=== PATIENT | male | born 1980 | race Caucasian/White ===

== ENCOUNTER 2019-09-01 22:56 | Emergency (ER) | payer SELFPAY ==
[2019-09-01] MEDS ORDERED: Aspirin 81 MG Tab.Chew PO ONE (23:06)
--- NOTE | 2019-09-01 23:16 | EDM.PDOC ---
<Rich Felton - Last Filed: 09/01/19 23:50> ED HPI GENERAL MEDICAL PROBLEM - General Chief Complaint: Cardiovascular Problem Stated Complaint: HEART ISSUES Time Seen by Provider: 09/01/19 22:59 - Related Data Allergies Allergy/AdvReac Type Severity Reaction Status Date / Time No Known Allergies Allergy Verified 09/01/19 23:02 Home Meds: Home Meds . [No Known Home Meds] 09/01/19 [History] Course - Vital Signs Last Recorded V/S: Last Vital Signs Temp 97.4 F 09/01/19 22:59 Pulse 88 09/02/19 00:55 Resp 18 09/02/19 00:55 BP 167/97 H 09/02/19 00:55 Pulse Ox 99 09/02/19 00:55 - Orders/Labs/Meds Orders: Active Orders 24 hr Category Date Time Status EKG Documentation Completion [RC] STAT Care 09/01/19 23:05 Active CULTURE BLOOD [BC] Stat Lab 09/01/19 23:05 Received CULTURE BLOOD [BC] Stat Lab 09/01/19 23:30 Received Blood Culture x2 Reflex Set [OM.PC] Stat Oth 09/01/19 23:12 Ordered Labs: Laboratory Tests 09/01/19 09/01/19 09/01/19 Range/Units 23:05 23:05 23:05 WBC 11.24 H (4.0-11.0) K/uL RBC 5.03 (4.50-5.90) M/uL Hgb 15.9 (13.0-17.0) g/dL Hct 47.7 (38.0-50.0) % MCV 94.8 (80.0-98.0) fL MCH 31.6 (27.0-32.0) pg MCHC 33.3 (31.0-37.0) g/dL RDW Std Deviation 47.4 (28.0-62.0) fl RDW Coeff of Johnny 14 (11.0-15.0) % Plt Count 260 (150-400) K/uL MPV 10.70 (7.40-12.00) fL Add Manual Diff YES Neutrophils % (Manual) 40 L (48.0-80.0) % Band Neutrophils % 1 % Lymphocytes % (Manual) 50 H (16.0-40.0) % Monocytes % (Manual) 7 (0.0-15.0) % Eosinophils % (Manual) 2 (0.0-7.0) % Nucleated RBC % 0.0 /100WBC Absolute Seg Neuts 4.5 (1.4-5.7) Band Neutrophils # 0.1 Lymphocytes # (Manual) 5.6 H (0.6-2.4) Monocytes # (Manual) 0.8 (0.0-0.8) Eosinophils # (Manual) 0.2 (0.0-0.7) Nucleated RBCs # 0 K/uL Lactate 2.2 H (0.20-2.00) mmol/L Sodium 142 (136-148) mmol/L Potassium 3.4 L (3.5-5.1) mmol/L Chloride 104 (98-107) mmol/L Carbon Dioxide 25.8 (21.0-32.0) mmol/L BUN 11 (7.0-18.0) mg/dL Creatinine 1.0 (0.8-1.3) mg/dL Est Cr Clr Drug Dosing 108.77 mL/min Estimated GFR (MDRD) > 60.0 ml/min Glucose 156 H (74-106) mg/dL Calcium 8.8 (8.5-10.1) mg/dL Total Bilirubin 0.3 (0.2-1.0) mg/dL AST 21 (15-37) IU/L ALT 55 (14-63) IU/L Alkaline Phosphatase 71 (46-116) U/L Troponin I < 0.050 (0.000-0.056) ng/mL Total Protein 7.8 (6.4-8.2) g/dL Albumin 3.4 (3.4-5.0) g/dL Globulin 4.4 H (2.6-4.0) g/dL Albumin/Globulin Ratio 0.8 L (0.9-1.6) Meds: Medications Discontinued Medications Generic Name Dose Route Start Last Admin Trade Name Freq PRN Reason Stop Dose Admin Aspirin 324 mg 09/01/19 23:06 09/01/19 23:28 Aspirin PO 09/01/19 23:07 324 mg ONETIME ONE Administration Departure - Departure Time of Disposition: 23:50 Disposition: Home, Self-Care 01 Clinical Impression: Breast mass Instructions: Cellulitis, Adult, [id number] Referrals: Giancarlo Chiu MD [Physician] - Melissa Mancilla MD [Physician] - Derek Ball MD [Physician] - PCP,None [Primary Care Provider] - Forms: ED Department Discharge Additional Instructions: The following information is given to patients seen in the emergency department who are being discharged to home. This information is to outline your options for follow-up care. We provide all patients seen in our emergency department with a follow-up referral. The need for follow-up, as well as the timing and circumstances, are variable depending upon the specifics of your emergency department visit. If you don't have a primary care physician on staff, we will provide you with a referral. We always advise you to contact your personal physician following an emergency department visit to inform them of the circumstance of the visit and for follow-up with them and/or the need for any referrals to a consulting specialist. The emergency department will also refer you to a specialist when appropriate. This referral assures that you have the opportunity for follow-up care with a specialist. All of these measure are taken in an effort to provide you with optimal care, which includes your follow-up. Under all circumstances we always encourage you to contact your private physician who remains a resource for coordinating your care. When calling for follow-up care, please make the office aware that this follow-up is from your recent emergency room visit. If for any reason you are refused follow-up, please contact the [facility] Emergency Department at and asked to speak to the emergency department charge nurse. [facility] [address] [place] [id number] [address] [facility] - General Surgery, Dr. Chiu [facility] [address] [place] [address], [address] [place] [address] 1. Take medication as prescribed. You can alternate ibuprofen and Tylenol as directed for pain and discomfort. 2. Follow-up with the general surgeon, Dr. Chiu, as discussed and your primary care provider. His number has been provided above for you. Call Tuesday morning to set up and establish an appointment time. 3. Return to the ED as needed and as discussed. - My Orders Last 24 Hours: My Active Orders 09/01/19 23:05 EKG Documentation Completion [RC] STAT CULTURE BLOOD [BC] Stat 09/01/19 23:12 Blood Culture x2 Reflex Set [OM.PC] Stat 09/01/19 23:30 CULTURE BLOOD [BC] Stat - Assessment/Plan Last 24 Hours: My Active Orders 09/01/19 23:05 EKG Documentation Completion [RC] STAT CULTURE BLOOD [BC] Stat 09/01/19 23:12 Blood Culture x2 Reflex Set [OM.PC] Stat 09/01/19 23:30 CULTURE BLOOD [BC] Stat <Maris Bacon - Last Filed: 09/02/19 09:57> ED HPI GENERAL MEDICAL PROBLEM - General Source of Information: Reports: Patient History Limitations: Reports: No Limitations - History of Present Illness INITIAL COMMENTS - FREE TEXT/NARRATIVE: HISTORY AND PHYSICAL: History of present illness: Patient is a 38-year-old male presents to the ED today with concern of left- sided chest discomfort approximately 30 minutes ago when he was trying to go to sleep that he rates a 2/10 and not painful. Patient states he has an infection on his right breast and he is concerned that the infection is spreading and now he is having this sensation on the other side so is concerned for spreading of infection. Patient states that he has had the infection on his right breast for about one month. Patient states this area is painful to touch and has gotten worse over the last month. Patient denies any trauma or injury to the breast. Patient states he has not taken anything for her symptoms and came to the ED right away. Patient states he has a history of high cholesterol and high blood pressure but chooses not to take any medication for it. Patient denies any other symptoms or concerns. Patient denies fever, chills, shortness of breath, or cough. Denies headache, neck stiff ness, change in vision, syncope, or near syncope. Denies nausea, vomiting, abdominal pain, diarrhea, constipation, or dysuria. Has not noted any blood in urine or stool. Patient has been eating and drinking appropriately. Review of systems: As per history of present illness and below otherwise all systems reviewed and negative. Past medical history: As per history of present illness and as reviewed below otherwise noncontributory. Surgical history: As per history of present illness and as reviewed below otherwise noncontributory. Social history: See social history for further information Family history: As per history of present illness and as reviewed below otherwise noncontributory. Physical exam: General: Patient is alert, oriented, and in no acute distress. Patient laying comfortably on exam table. HEENT: Atraumatic, normocephalic, pupils equal and reactive bilaterally, negative for conjunctival pallor or scleral icterus, mucous membranes moist, TMs normal bilaterally, throat clear, neck supple, nontender, trachea midline. No drooling or trismus noted. No meningeal signs. No hot potato voice noted. Lungs: Clear to auscultation, breath sounds equal bilaterally. There is a well circumscribed, indurated sub areolar mass of the right breast that mildly tender to palpation and slightly warm to the touch; approximately 3cm x 4 cm. Heart: S1S2, regular rate and rhythm without overt murmur Abdomen: Obese, Soft, nondistended, nontender. Negative for masses or hepatosplenomegaly. Negative for costovertebral tenderness. Pelvis: Stable nontender. Genitourinary: Deferred. Rectal: Deferred. Skin: Intact, warm, dry. No lesions or rashes noted. Extremities: Atraumatic, negative for cords or calf pain. Neurovascular unremarkable. Neuro: Awake, alert, oriented. Cranial nerves II through XII unremarkable. Cerebellum unremarkable. Motor and sensory unremarkable throughout. Exam nonfocal. Notes: Dr. Felton directly involved in patient care. Dr. Chiu, general surgery, was consulted and does not see the need for imaging at this time for the breast mass and to place patient on Bactrim with follow up with him in his office. Voices understanding and is agreeable to plan of care. Denies any further questions or concerns at this time. Diagnostics: CBC, CMP, UA, lactate, blood cultures 2, chest x-ray, EKG, troponin Therapeutics: ASA Prescription: Bactrim DS Impression: Right breast mass Plan: 1. Take medication as prescribed. You can alternate ibuprofen and Tylenol as directed for pain and discomfort. 2. Follow-up with the general surgeon, Dr. Chiu, as discussed and your primary care provider. His number has been provided above for you. Call Tuesday morning to set up and establish an appointment time. 3. Return to the ED as needed and as discussed. Definitive disposition and diagnosis as appropriate pending reevaluation and review of above. Chest Pain Score (Numeric/FACES): 1 Past Medical History - Past Health History Medical/Surgical History: Denies Medical/Surgical History Psychiatric History: Reports: None - Infectious Disease History Infectious Disease History: Reports: None Social & Family History - Tobacco Use Smoking Status *Q: Current Every Day Smoker Years of Tobacco use: 8 Packs/Tins Daily: 0.8 - Recreational Drug Use Recreational Drug Use: No ED ROS GENERAL - Review of Systems Review Of Systems: ROS reveals no pertinent complaints other than HPI. ED EXAM, GENERAL - Physical Exam Exam: See Below (See dictation) Course - Orders/Labs/Meds Labs: Laboratory Tests 09/01/19 09/01/19 09/01/19 Range/Units 23:05 23:05 23:05 WBC 11.24 H (4.0-11.0) K/uL RBC 5.03 (4.50-5.90) M/uL Hgb 15.9 (13.0-17.0) g/dL Hct 47.7 (38.0-50.0) % MCV 94.8 (80.0-98.0) fL MCH 31.6 (27.0-32.0) pg MCHC 33.3 (31.0-37.0) g/dL RDW Std Deviation 47.4 (28.0-62.0) fl RDW Coeff of Johnny 14 (11.0-15.0) % Plt Count 260 (150-400) K/uL MPV 10.70 (7.40-12.00) fL Add Manual Diff YES Neutrophils % (Manual) 40 L (48.0-80.0) % Band Neutrophils % 1 % Lymphocytes % (Manual) 50 H (16.0-40.0) % Monocytes % (Manual) 7 (0.0-15.0) % Eosinophils % (Manual) 2 (0.0-7.0) % Nucleated RBC % 0.0 /100WBC Absolute Seg Neuts 4.5 (1.4-5.7) Band Neutrophils # 0.1 Lymphocytes # (Manual) 5.6 H (0.6-2.4) Monocytes # (Manual) 0.8 (0.0-0.8) Eosinophils # (Manual) 0.2 (0.0-0.7) Nucleated RBCs # 0 K/uL Lactate 2.2 H (0.20-2.00) mmol/L Sodium 142 (136-148) mmol/L Potassium 3.4 L (3.5-5.1) mmol/L Chloride 104 (98-107) mmol/L Carbon Dioxide 25.8 (21.0-32.0) mmol/L BUN 11 (7.0-18.0) mg/dL Creatinine 1.0 (0.8-1.3) mg/dL Est Cr Clr Drug Dosing 108.77 mL/min Estimated GFR (MDRD) > 60.0 ml/min Glucose 156 H (74-106) mg/dL Calcium 8.8 (8.5-10.1) mg/dL Total Bilirubin 0.3 (0.2-1.0) mg/dL AST 21 (15-37) IU/L ALT 55 (14-63) IU/L Alkaline Phosphatase 71 (46-116) U/L Troponin I < 0.050 (0.000-0.056) ng/mL Total Protein 7.8 (6.4-8.2) g/dL Albumin 3.4 (3.4-5.0) g/dL Globulin 4.4 H (2.6-4.0) g/dL Albumin/Globulin Ratio 0.8 L (0.9-1.6)
--- NOTE | 2019-09-01 23:41 | CR ---
INDICATION: CHEST PAIN TECHNIQUE: Chest 1 view. COMPARISON: None. FINDINGS: Cardiovascular and mediastinum: Heart size and vasculature are normal in caliber and appearance. Mediastinum is within normal limits. Lungs and pleural space: Lungs are clear. No sign of infiltrate or mass. No sign of pleural effusion. No pneumothorax. Bones and soft tissues: No significant findings. IMPRESSION: Unremarkable chest. Dictated by: Maximo Santos MD @ 09/01/2019 23:39:49 (Electronically Signed)
[2019-09-01 23:44] LABS: BLOOD UREA NITROGEN,BUN 11 mg/dL (7.0-18.0); CARBON DIOXIDE,CO2 25.8 mmol/L (21.0-32.0); CHLORIDE,CL 104 mmol/L (98-107); GLUCOSE RANDOM 156 mg/dL (74-106); POTASSIUM,K 3.4 mmol/L (3.5-5.1); SODIUM,NA 142 mmol/L (136-148)
== END 2019-09-02 00:55 | disposition home or self-care (01) ==
LOC: MW.ED 22:56
DX: N63.10 Unspecified lump in the right breast, unspecified quadrant (principal); I10 Essential (primary) hypertension; F17.210 Nicotine dependence, cigarettes, uncomplicated
CPT/HCPCS: 36415; 71045; 80053; 83605; 84484; 85025; 87040; 93005; 99285; A9270

== ENCOUNTER 2019-09-14 08:02 | Day surgery (SDC) | payer OTHER ==
[~2019-09-14 08:02] MED LIST: Dexamethasone 4 MG/ML 5 ML MDV IV ONE; Glycopyrrolate 0.2 MG/ML SDV IVPUSH ONE; Ketorolac 30 MG/ML SDV IVPUSH ONE; Lactated Ringers 1,000 ML IV SCH; Lidocaine 2% 5 ML SDV IV ONE; Midazolam 1 MG/ML 2 ML SDV IV ONE; Ondansetron 4 MG/2 ML SDV IVPUSH ONE; Propofol 200 MG/20 ML SDV IV ONE; fentaNYL 100 MCG/2 ML SDV IV ONE
[2019-09-14] MEDS ORDERED: ceFAZolin 1 GM Vial IV ONE (08:08)
[2019-09-14] MEDS ORDERED: Bupivacaine 0.5% 30 ML SDV INJECT ONE (08:08)
--- NOTE | 2019-09-14 08:26 | PCM.PREANE ---
Preanesthetic Assessment - Anesthesia/Transfusion/Family Hx Anesthesia History: Prior Anesthesia Without Reaction Family History of Anesthesia Reaction: No Transfusion History: No Prior Transfusion(s) Intubation History: Unknown - Review of Systems General: No Symptoms Pulmonary: No Symptoms Cardiovascular: No Symptoms Gastrointestinal: No Symptoms Neurological: No Symptoms Other: Reports: None - Physical Assessment Height: 5 ft 11 in Weight: 173.726 kg ASA Class: 3 Mental Status: Alert & Oriented x3 Airway Class: Mallampati = 3 Dentition: Reports: Normal Dentition Thyro-Mental Finger Breadths: 3 Mouth Opening Finger Breadths: 2 (small mouth) ROM/Head Extension: Limited/Partial Lungs: Clear to Auscultation, Normal Respiratory Effort Cardiovascular: Regular Rate, Regular Rhythm - Allergies Allergies/Adverse Reactions: Allergies Allergy/AdvReac Type Severity Reaction Status Date / Time No Known Allergies Allergy Verified 09/13/19 10:33 - Blood Blood Available: No - Anesthesia Plan Pre-Op Medication Ordered: None - Acknowledgements Anesthesia Type Planned: General Anesthesia Pt an Appropriate Candidate for the Planned Anesthesia: Yes Alternatives and Risks of Anesthesia Discussed w Pt/Guardian: Yes Pt/Guardian Understands and Agrees with Anesthesia Plan: Yes PreAnesthesia Questionnaire - Past Health History Medical/Surgical History: Denies Medical/Surgical History Cardiovascular History: Reports: Hypertension Other Cardiovascular History: recently started on medication Gastrointestinal History: Reports: Diverticulosis Psychiatric History: Reports: None Endocrine/Metabolic History: Reports: Obesity/BMI 30+ (morbid obesity BMI 53.4) - Infectious Disease History Infectious Disease History: Reports: None - Past Surgical History GI Surgical History: Reports: Colonoscopy - SUBSTANCE USE Smoking Status *Q: Current Every Day Smoker (about 8 cigarettes per day) Tobacco Use Within Last Twelve Months: Cigarettes Recreational Drug Use History: No - HOME MEDS Home Medications: Home Meds Sulfamethoxazole/Trimethoprim [Bactrim Ds Tablet] 1 tab PO BID 09/10/19 [History ] Lisinopril 20 mg PO QAM 09/13/19 [History] - CURRENT (IN HOUSE) MEDS Current Meds: Current Medications Lactated Ringer's (Ringers, Lactated) 1,000 mls @ 125 mls/hr IV ASDIRECTED [facility]
[2019-09-14] MEDS ORDERED: Phenylephrine/Normal Saline 100 MCG/ML 10 ML Syringe IV ONE (09:03)
[2019-09-14] MEDS ORDERED: Ondansetron 4 MG/2 ML SDV IVPUSH PRN (09:40)
[2019-09-14] MEDS ORDERED: Acetaminophen 325 MG Tab PO PRN (09:40)
[2019-09-14] MEDS ORDERED: Acetaminophen/HYDROcodone 325-5 MG Tab PO PRN (09:40)
[2019-09-14] MEDS ORDERED: Morphine 10 MG/ML Syringe IVPUSH PRN (09:40)
--- NOTE | 2019-09-14 09:42 | PCM.OPNOTE ---
- General Post-Op/Procedure Note Date of Surgery/Procedure: 09/14/19 Operative Procedure(s): Mastotomy with drainage, right breast abscess Pre Op Diagnosis: Right breast abscess Post-Op Diagnosis: Same Anesthesia Technique: General LMA (ASA III) Primary Surgeon: Giancarlo Chiu Fluid Replacement, Intraop: 800 EBL in mLs: 10 Condition: Good Free Text/Narrative:: DICTATION 449374 CPT CODE 37732
[2019-09-14] MEDS ORDERED: Lactated Ringers 1,000 ML IV SCH (09:45)
--- NOTE | 2019-09-14 10:12 | PCM.POSTAN ---
POST ANESTHESIA ASSESSMENT - MENTAL STATUS Mental Status: Alert, Oriented - VITAL SIGNS Vital Signs: Last Vital Signs Temp 36.3 C 09/14/19 09:32 Pulse 96 09/14/19 09:47 Resp 12 09/14/19 09:47 BP 150/89 H 09/14/19 09:47 Pulse Ox 95 09/14/19 09:47 - RESPIRATORY Respiratory Status: Respiratory Rate WNL, Airway Patent, O2 Saturation Stable - CARDIOVASCULAR CV Status: Pulse Rate WNL, Blood Pressure Stable - GASTROINTESTINAL GI Status: No Symptoms - PAIN Pain Score: 0 - POST OP HYDRATION Hydration Status: Adequate & Stable - OBSERVATIONS Free Text/Narrative:: no anesthesia problems
[2019-09-14] MEDS ORDERED: Acetaminophen/HYDROcodone 325-5 MG Tab PO ONE (10:38)
--- NOTE | 2019-09-14 10:43 | OR ---
SURGEON: Giancarlo Chiu M.D. DATE OF PROCEDURE: 09/14/2019 OPERATION PERFORMED: Right breast mastotomy with drainage of abscess. PRIMARY SURGEON: Giancarlo Chiu MD. ANESTHESIA: General LMA. ASA CLASSIFICATION: III. PREOPERATIVE DIAGNOSIS: Right breast abscess. POSTOPERATIVE DIAGNOSIS: Right breast abscess. ESTIMATED BLOOD LOSS: 10 mL. INTRAOPERATIVE FLUID REPLACEMENT: 800 mL of crystalloid. DESCRIPTION OF PROCEDURE: The patient was taken to the operating room and placed on the operating table in the supine position. Time-out was called for appropriate identification of the patient and procedure. Thigh-high TEDs and sequential compression boots were placed. Following satisfactory attainment of general anesthesia with placement of an LMA, the right chest was prepped with Betadine solution and sterile drapes were applied. A skin incision was made from the 10 o'clock position to the 8 o'clock position in the right breast just lateral to the nipple-areolar complex. Using electrocautery, hemostasis was obtained and dissection was carried down into the abscess cavity. Aerobic and anaerobic cultures were obtained and sent for microbiologic analysis. Bleeding sites were electrocoagulated. The wound was irrigated with several 100 mL of sterile saline solution and all fluid was aspirated. A 1 inch [place] drain was brought to the operating table and cut to appropriate length. One limb was positioned under the nipple-areolar complex and the other limb positioned laterally. These were secured to the skin with two interrupted 2-0 nylon sutures. The wound was further inspected and no other bleeding was noted. The surgical site was then dressed with Adaptic gauze and fluffs held in place with Medipore tape. Sponge, needle, and instrument counts were all correct. Following emergence from anesthesia and extubation, the patient was taken to recovery room in stable condition. INDIO / FEI /[id number]
--- NOTE | 2019-09-14 11:00 | PCM48HPAN ---
Post Anesthesia Note - EVALUATION WITHIN 48HRS OF ANESTHETIC Vital Signs in Normal Range: Yes Patient Participated in Evaluation: Yes Respiratory Function Stable: Yes Airway Patent: Yes Cardiovascular Function Stable: Yes Hydration Status Stable: Yes Pain Control Satisfactory: Yes Nausea and Vomiting Control Satisfactory: Yes Mental Status Recovered: Yes Vital Signs: Last Vital Signs Temp 36.3 C 09/14/19 09:32 Pulse 96 09/14/19 09:47 Resp 12 09/14/19 09:47 BP 150/89 H 09/14/19 09:47 Pulse Ox 95 09/14/19 09:47 - COMMENTS/OBSERVATIONS Free Text/Narrative:: no anesthesia problems
== END 2019-09-14 11:07 | disposition home or self-care (01) ==
LOC: MW.SDS 08:02
PROVIDERS: ATTEND Surgery
DX: N61.1 Abscess of the breast and nipple (principal); F17.210 Nicotine dependence, cigarettes, uncomplicated; E66.01 Morbid (severe) obesity due to excess calories; I10 Essential (primary) hypertension; Z68.43 Body mass index [BMI] 50.0-59.9, adult
CPT/HCPCS: 19020; 87070; 87075; 87077; 87186; 87205; A9270; J0690; J1100; J1885; J2001; J2250; J2370; J2405; J2704; J3010; J3490; J7120